=== PATIENT | male | born 1995 | race Caucasian/White ===

== ENCOUNTER → 2020-09-19 | Outpatient (REF) | LOC: LAB 08:43 | DX: R10.84 Generalized abdominal pain (principal) | CPT/HCPCS: Q9967 ==

== ENCOUNTER → 2020-09-19 | Outpatient (CLI) | payer BC | LOC: RAD 08:48 | DX: R10.84 Generalized abdominal pain (principal) ==

== ENCOUNTER → 2020-09-21 | Outpatient (CLI) | payer BC | LOC: RAD 07:18 | DX: R10.84 Generalized abdominal pain (principal); R63.4 Abnormal weight loss ==